=== PATIENT | female | born 1965 | race Caucasian/White ===

== ENCOUNTER 2022-08-09 19:49 | Emergency (ER) | payer BC ==
[~2022-08-09] VITALS: Ht 152.4 cm; Wt 73.5 kg
[2022-08-09 20:10] VITALS: BP_SYST 129
[2022-08-09] MEDS ORDERED: HYDROcodone/ACETAMIN 10-325 MG TAB PO ONE (20:15)
[2022-08-09] MEDS ORDERED: DIAZEPAM 5 MG TABLET (VALIUM) PO ONE (20:45)
[2022-08-09] MEDS ORDERED: CYCL10TA24 PO (21:19)
[2022-08-09] MEDS ORDERED: MORP30TA59 PO (21:19)
[2022-08-09] MEDS ORDERED: IBUP-1969 PO (21:19)
[2022-08-09] MEDS ORDERED: ACET-2634 PO (21:19)
[2022-08-09 21:56] VITALS: BP_SYST 132
== END 2022-08-09 21:54 | disposition home or self-care (01) ==
LOC: SED 19:49
DX: S42.212A Unspecified displaced fracture of surgical neck of left humerus, initial encounter for closed fracture (principal); Z79.899 Other long term (current) drug therapy; X50.0XXA Overexertion from strenuous movement or load, initial encounter; Y93.89 Activity, other specified; Y92.89 Other specified places as the place of occurrence of the external cause; Y99.8 Other external cause status
CPT/HCPCS: 73030; 99283